=== PATIENT | male | born 1990 | race Caucasian/White ===

== ENCOUNTER 2025-02-20 22:07 | Emergency (ER) | payer MEDICAID ==
[~2025-02-20] VITALS: Ht 198.1 cm; Wt 84.7 kg
[2025-02-20 22:31] LABS: BILIRUBIN, URINE NEGATIVE (negative); BLOOD/HGB, URINE NEGATIVE (Negative); KETONE, URINE NEGATIVE (Negative); LEUK ESTERASE, URINE NEGATIVE (negative); NITRITE, URINE NEGATIVE (negative); PH, URINE 6.5 (5-7)
[2025-02-20 23:07] LABS: BASOPHILS 0.3 % (0.2-1.2); EOSINOPHILS 0.2 % (0.8-7.0); HEMATOCRIT 44.7 % (40.1-51.0); HEMOGLOBIN 15.7 g/dL (13.7-17.5); LYMPHOCYTES 32.5 % (21.8-53.1); MCH 29.7 PG (25.7-32.2); MCHC 35.1 g/dL (32.3-36.5); MCV 84.7 fL (79.0-92.2); MONOCYTES 9.4 % (5.3-12.2); NEUTROPHILS 57.4 % (34.0-67.9); PLATELET COUNT 192 K/uL (163-337); RBC 5.28 M/uL (4.63-6.08)
[2025-02-20 23:22] LABS: ALBUMIN 4.3 g/dL (3.4-5.0); ALBUMIN/GLOBULIN RATIO 1.39 (1.1-2.4); ANION GAP 13.6 (7-21); BILIRUBIN, TOTAL 1.1 mg/dL (0.2-1.0); BUN/CREATININE RATIO 20.56 (6.0-28.6); CALCIUM 9.4 mg/dL (8.5-10.1); CREATININE, SERUM 1.07 mg/dL (0.70-1.30); POTASSIUM 3.6 mmol/L (3.5-5.1); PROTEIN, TOTAL 7.4 g/dL (6.4-8.2)
[2025-02-21 00:53] LABS: N. GONORRRHOEAE BY PCR NOT DETECTED (NOT DETECT)
[2025-02-21 01:01] VITALS: BP 135/75
== END 2025-02-21 01:05 | disposition home or self-care (01) ==
LOC: ED 22:07
PROVIDERS: Family Medicine
DX: R31.9 Hematuria, unspecified (principal)
CPT/HCPCS: 36415; 74176; 80053; 81003; 85025; 99284-25